=== PATIENT | female | born 2000 | race African-American/Black ===

== ENCOUNTER 2018-08-01 10:18 | Emergency (ER) | payer BC ==
[~2018-08-01] VITALS: Ht 170.2 cm; Wt 198.2 kg
--- NOTE | ~2018-08-01 | EKG ---
[address] [address] ELECTROCARDIOGRAM REPORT Name: ERIKA ZAPIEN Room #: DEP [facility]#: [id number] Admission: 08/01/18 Attend Phys: Discharge: 08/01/18 Date of : [birth year] Report #: [id number] THIS REPORT FOR: //name// [facility] ED Test Date: 2018-08-01 Test Time: 10:43:23 Pat Name: ERIKA ZAPIEN Department: Room: Gender: F Community Administrator: SHAUNA : 2000 Requested By: Zenaida Mojica Order Number: [id number] MD: Alex Pressley Measurements Intervals [place] Rate: 87 P: 44 WI: 158 QRS: 23 QRSD: 91 T: 4 QT: 378 QTc: 455 Interpretive Statements Sinus rhythm Probable left atrial enlargement No previous ECG available for comparison Electronically Signed On 08-01-2018 16:21:40 [employer] by Alex Pressley [email or web address] <ELECTRONICALLY SIGNED> By: Alex Pressley MD 08/01/18 1621 1043 1043 Alex Pressley MD /YANN
[2018-08-01] MEDS ORDERED: METFORMIN HCL500 MG PO (10:26)
[2018-08-01] MEDS ORDERED: KELNOR 1-351 EACH PO (10:26)
[2018-08-01] MEDS ORDERED: VITAMIN D3400 UNIT PO (10:27)
[2018-08-01 11:06] LABS: ABSOLUTE NEUTROPHILS 5.4 thou/uL (1.4-8.2); BASOPHILS 0.5 % (0.0-2.0); HEMATOCRIT 36.9 % (37.0-47.0); HEMOGLOBIN 12.5 gm/dL (12.0-15.0); LYMPHOCYTES 19.4 % (24.0-44.0); MCH 25.7 pg (26.0-34.0); MCHC 33.8 g/dL (28.0-37.0); MONOCYTES 9.6 % (1.0-8.0); PLATELET COUNT 280 thou/uL (150-400); POLYS 68.5 % (36.0-66.0); RBC 4.86 mil/uL (4.20-5.00); RDW 15.8 % (10.5-14.5); WBC 7.9 thou/uL (4.0-11.0)
[2018-08-01 11:12] LABS: CALCIUM 8.9 mg/dL (8.5-10.1); CREATININE 0.7 mg/dL (0.6-1.0); POTASSIUM 3.7 mmol/L (3.5-5.1)
[2018-08-01 11:18] LABS: TOTAL BILIRUBIN 3.1 mg/dL (<0.1-1.0); TOTAL PROTEIN 7.8 g/dL (6.4-8.2)
[2018-08-01 11:36] LABS: URINE BILIRUBIN 3+ (Negative); URINE BLOOD NEGATIVE (Negative); URINE CLARITY SL CLOUDY; URINE COLOR BROWN; URINE GLUCOSE-RANDOM* TRACE (Negative); URINE KETONES NEGATIVE (Negative); URINE LEUKOCYTES NEGATIVE (Negative); URINE NITRITE POSITIVE (Negative); URINE PROTEIN (DIPSTICK) TRACE (Negative); URINE SPECIFIC GRAVITY >= 1.030 (1.005-1.035)
[2018-08-01 11:38] LABS: ICTOTEST (BILI CONFIRMATORY) Positive (Negative)
[2018-08-01 11:45] LABS: BACTERIA >30 Many /HPF (None Seen); SQUAMOUS >10 Many /LPF (0-3)
[2018-08-01 11:46] LABS: CASTS None Seen /LPF (None Seen); CRYSTALS None Seen /LPF (None Seen); URINE RBC None Seen /HPF (0-2); URINE WBC 0-5 Rare /HPF (0-5)
[2018-08-01] MEDS ORDERED: PHENERGAN 25 MG25 M1 PO (12:19)
[2018-08-01] MEDS ORDERED: IBUPROFEN 800800 M1 PO (12:19)
[2018-08-01] MEDS ORDERED: BENTYL 20 MG TA20 M1 PO (12:19)
[2018-08-01 12:42] VITALS: BP 162/80
== END 2018-08-01 12:45 | disposition home or self-care (01) ==
LOC: ER 10:18
PROVIDERS: Physician Assistant
DX: S29.012A Strain of muscle and tendon of back wall of thorax, initial encounter (principal); K80.70 Calculus of gallbladder and bile duct without cholecystitis without obstruction; E11.9 Type 2 diabetes mellitus without complications; E66.9 Obesity, unspecified; Z68.44 Body mass index [BMI] 60.0-69.9, adult; X58.XXXA Exposure to other specified factors, initial encounter; Y92.89 Other specified places as the place of occurrence of the external cause; Y93.89 Activity, other specified; Y99.8 Other external cause status